=== PATIENT | male | born 1990 | race Caucasian/White ===

== ENCOUNTER 2018-09-01 09:23 | Emergency (ER) | payer MEDICAID ==
[2018-09-01] MEDS ORDERED: KETOROLAC 30 MG/ML VIAL IM ONE (09:49)
--- NOTE | 2018-09-01 10:16 | Emergency Department Record ---
History of Present Illness - General Chief Complaint: Back Pain/Injury Stated Complaint: HIP PAIN Time Seen by Provider: 09/01/18 09:45 Source: Patient Mode of Arrival: Ambulatory Limitations: No limitations - History of Present Illness Initial Comments: The patient is here due to L hip pain for a month. The pain seems to come and go and is worse after working hard and bending a lot. The patient also has mild R hip pain at times. He denies any back pain, fever, chills, leg numbness or weakness. The patient did go to an in [place] a month ago but was told he had bursitis and did not have any xrays. He denies any recent illness, injuries, fever, chills, AP, or dysuria. MD Complaint: Other Onset/Timin -: Month(s) Similar Symptoms Previously: No Place: Other Radiation: Left leg Severity: Moderate Severity scale (1-10): 5 Quality: Aching Consistency: Constant Improves With: None Worsens With: None Context: Unknown Associated Symptoms: Denies other symptoms Treatments Prior to Arrival: NSAIDS Treatment Prior to Arrival Comment:: none today - Related Data Home Medications Medication Instructions Recorded Confirmed Last Taken Insulin Aspart [Novolog] 35 unit SQ DAILY 09/01/18 09/01/18 09/01/18 Previous Rx's Medication Instructions Recorded Naproxen [Naprosyn] 500 mg PO BID #14 tablet. 09/01/18 Allergies Allergy/AdvReac Type Severity Reaction Status Date / Time No Known Drug Allergies Allergy Verified 09/01/18 09:32 Travel Screening - Travel/Exposure Within Last 30 Days Have you traveled within the last 30 days?: No - Travel/Exposure Within Last Year Have you traveled outside the [place] in the last year?: No - Additonal Travel Details Have you been exposed to anyone with a communicable illness?: No - Travel Symptoms Symptom Screening: None Review of Systems Constitutional: Denies: Chills, Fever Eyes: Denies: Eye discharge ENT: Denies: Congestion Respiratory: Denies: Cough, Dyspnea Past Medical History - SOCIAL HISTORY Smoking Status: Current every day smoker Alcohol Use: Occasional Drug Use: None - RESPIRATORY Hx Respiratory Disorders: No - CARDIOVASCULAR Hx Cardio Disorders: No - NEURO Hx Neuro Disorders: No - GI Hx GI Disorders: No - Hx Genitourinary Disorders: No - ENDOCRINE Hx Endocrine Disorders: Yes Hx Diabetes: Yes - MUSCULOSKELETAL Hx Musculoskeletal Disorders: No - PSYCH Hx Psych Problems: No - HEMATOLOGY/ONCOLOGY Hx Hematology/Oncology Disorders: No Family Medical History Any Significant Family History?: Yes Hx Diabetes: Grandparents Physical Exam - General General Appearance: Alert, Oriented x3, Cooperative, No acute distress - Head Head exam: Atraumatic, Normocephalic, Normal inspection - Eye Eye exam: Normal appearance, PERRL, EOMI - Neck Neck exam: Normal inspection, Full ROM. negative: Tenderness - Respiratory Respiratory exam: Normal lung sounds bilaterally. negative: Respiratory distress - Cardiovascular Cardiovascular Exam: Regular rate, Normal rhythm, Normal heart sounds - GI/Abdominal GI/Abdominal exam: Soft, Normal bowel sounds. negative: Rebound, Rigid, Tenderness - Extremities Extremities exam: Normal inspection, Full ROM (There is full ROM of both hips with only mild pain on full ROM of the L hip.), Normal capillary refill. negative: Calf tenderness, Pedal edema, Tenderness - Back Back exam: Reports: Normal inspection, Full ROM. Denies: CVA tenderness (R), CVA tenderness (L), Muscle spasm, Paraspinal tenderness, Rash noted, Tenderness, Vertebral tenderness - Neurological Neurological exam: Alert, Normal gait (The patient is ambulating normally with no problems or limping.), Oriented X3. negative: Abnormal gait, Altered, Motor sensory deficit - Skin Skin exam: negative: Rash Course Vital Signs 09/01/18 09:34 Temperature 98 F Pulse Rate 71 Respiratory 20 Rate Blood Pressure 136/81 Pulse Ox 100 - Reevaluation(s) Reevaluation #1: I did discuss the neg xrays with the patient and the need for F/U if not better in 1 week. The patient also is to take today off work. 09/01/18 10:37 Medical Decision Making - Data Complexity MDM Data: X-Ray Ordered and/or Reviewed - Radiology Data Radiology results: Report reviewed (Bilateral Hips: Neg for any acute abnormality.) Disposition Disposition: Discharge Clinical Impression: Hip pain, left Disposition: Home, Self-Care Condition: (2) Stable Instructions: Hip Pain (ED) Additional Instructions: Please take the Naprosyn for pain and rest when possible. Please see your family doctor next week if not better. Return to the ER for any worsening problems or pain. Prescriptions: Naproxen [Naprosyn] 500 mg PO BID #14 tablet. Forms: Patient Portal Access Time of Disposition: 10:35 Quality - Quality Measures Quality Measures: N/A - Blood Pressure Screening View Details: Yes Does Patient Have Any of the Following: No Blood Pressure Classification: Pre-Hypertensive BP Reading Systolic Measurement: 136 Diastolic Measurement: 81 Screening for High Blood Pressure: < Pre-Hypertensive BP, F/U Documented > [G8950] Pre-Hypertensive Follow-up Interventions: Referral to alternative/primary care provider.
--- NOTE | 2018-09-02 21:04 | RADIOLOGY REPORT ---
EXAM: HIP,BILATERAL W/PELVIS 2 VIEWS HISTORY: BILATERAL HIP PAIN, LEFT GREATER THAN RIGHT, FOR ONE MONTH. NO KNOWN INJURY. LEFT HIP PAIN RADIATES INTO LEFT LEG. TECHNIQUE: An AP view of the pelvis is obtained as well as frog-leg lateral views of each hip. COMPARISON: None. ENCOUNTER: Initial. FINDINGS: There is normal bone mineralization. No acute fracture nor dislocation. The hip joint spaces are maintained. No marginal spurring. Tiny ossicles are noted adjacent to the superior margins of each acetabulum. These are likely developmental. No focal soft tissue abnormality. The sacroiliac joints are maintained. A few small round calcifications within the inferior right hemipelvis are likely vascular in origin. IMPRESSION: NO ACUTE BONE NOR JOINT ABNORMALITY. TINY OSSICLES ADJACENT TO THE SUPERIOR MARGINS OF EACH ACETABULUM ARE LIKELY DEVELOPMENTAL. JOB NUMBER: [id number] [facility]
== END 2018-09-01 10:42 | disposition home or self-care (01) ==
LOC: ER 09:23
DX: M25.552 Pain in left hip (principal); M25.551 Pain in right hip; F17.210 Nicotine dependence, cigarettes, uncomplicated
CPT/HCPCS: 73521; 96372; 99283; 99284; J1885